=== PATIENT | female | born 1975 | race Caucasian/White ===

== ENCOUNTER 2019-07-30 12:06 | Emergency (ER) | payer OTHER ==
[~2019-07-30] VITALS: Ht 167.6 cm; Wt 56.7 kg
[2019-07-30] MEDS ORDERED: PROGRAF 1 MG1 MG PO (12:28)
[2019-07-30] MEDS ORDERED: PROBIOTIC1 EAC7 PO (12:28)
[2019-07-30] MEDS ORDERED: VITAMIN E100 UNI1 PO (12:28)
[2019-07-30] MEDS ORDERED: MAGNESIUM250 M1 PO (12:28)
[2019-07-30 12:44] LABS: ABSOLUTE NEUTROPHILS 4.7 thou/uL (1.4-8.2); BASOPHILS 0.4 % (0.0-2.0); EOSINOPHILS 1.2 % (0.0-3.0); HEMATOCRIT 38.8 % (37.0-47.0); HEMOGLOBIN 12.9 gm/dL (12.0-15.0); LYMPHOCYTES 31.2 % (24.0-44.0); MCH 29.4 pg (26.0-34.0); MCHC 33.3 g/dL (28.0-37.0); MCV 88.2 fL (80.0-100.0); MONOCYTES 6.6 % (1.0-8.0); PLATELET COUNT 228 thou/uL (150-400); POLYS 60.6 % (36.0-66.0); RDW 12.6 % (10.5-14.5); WBC 7.7 thou/uL (4.0-11.0)
[2019-07-30 12:50] LABS: ANION GAP 8 mmol/L (7-16); BUN 18 mg/dL (7-18); CALCIUM 9.6 mg/dL (8.5-10.1); CHLORIDE 97 mmol/L (98-107); CO2 29 mmol/L (21-32); GLUCOSE 97 mg/dL (74-106); POTASSIUM 4.7 mmol/L (3.5-5.1); SODIUM 134 mmol/L (136-145)
[2019-07-30 12:56] LABS: PROTIME 10.2 Seconds (9.3-11.4)
[2019-07-30 13:01] LABS: ALBUMIN 4.3 g/dL (3.4-5.0); MAGNESIUM 1.4 mg/dL (1.8-2.4); SGOT 13 U/L (15-37); SGPT 16 U/L (30-65); TOTAL BILIRUBIN 0.4 mg/dL (<0.1-1.0); TOTAL PROTEIN 7.8 g/dL (6.4-8.2); TROPONIN-I <0.06 ng/mL (<0.06)
[2019-07-30 13:16] LABS: URINE BILIRUBIN NEGATIVE (Negative); URINE BLOOD NEGATIVE (Negative); URINE CLARITY CLEAR; URINE COLOR YELLOW; URINE GLUCOSE-RANDOM* NEGATIVE (Negative); URINE KETONES NEGATIVE (Negative); URINE LEUKOCYTES-REFLEX NEGATIVE (Negative); URINE NITRITE-REFLEX NEGATIVE (Negative); URINE PROTEIN (DIPSTICK) NEGATIVE (Negative); URINE SPECIFIC GRAVITY 1.015 (1.005-1.035); URINE UROBILINOGEN 0.2 E.U./dl (0.2-1.0)
[2019-07-30 14:46] VITALS: BP 121/75
[2019-07-30] MEDS ORDERED: VENTOLIN HFA 1818 GM INH (14:49)
[2019-07-30] MEDS ORDERED: PREDNISONE 20 M20 MG PO (14:49)
[2019-07-30] MEDS ORDERED: AMBIEN 5 MG TABL5 M1 PO (14:52)
[2019-08-05] MEDS ORDERED: MAG-OXIDE400 MG PO (13:48)
--- NOTE | 2019-08-05 15:34 | EKG ---
[facility] [place] [address] ELECTROCARDIOGRAM REPORT Name: BETTY MARRERO Room #: DEP [facility]#: [id number] Admission: 07/30/19 Attend Phys: Discharge: 07/30/19 Date of : 77 Report #: [id number] THIS REPORT FOR: cc: Gaurav Devries III, III, Herbert E. 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
== END 2019-07-30 14:46 | disposition home or self-care (01) ==
LOC: ER 12:06
PROVIDERS: Emergency Medicine
DX: J20.9 Acute bronchitis, unspecified (principal); J98.01 Acute bronchospasm; Z94.4 Liver transplant status; Z87.891 Personal history of nicotine dependence

== ENCOUNTER 2019-08-14 05:51 | Emergency (ER) | payer OTHER ==
[~2019-08-14] VITALS: Ht 167.6 cm; Wt 56.7 kg
[~2019-08-14 05:51] MED LIST: AMBIEN 5 MG TABL5 M1 PO; MAG-OXIDE400 MG PO; MAGNESIUM250 M1 PO; PREDNISONE 20 M20 MG PO; PROBIOTIC1 EAC7 PO; PROGRAF 1 MG1 MG PO; VENTOLIN HFA 1818 GM INH; VITAMIN E100 UNI1 PO
[2019-08-14] MEDS ORDERED: ULTRAM 50MG TAB50 MG PO (06:32)
[2019-08-14] MEDS ORDERED: TYLENOL 8 HOUR650 MG PO (06:32)
[2019-08-14] MEDS ORDERED: NORFLEX100 MG PO (06:32)
[2019-08-14 07:23] VITALS: BP 122/78
== END 2019-08-14 07:25 | disposition home or self-care (01) ==
LOC: ER 05:51
DX: S16.1XXA Strain of muscle, fascia and tendon at neck level, initial encounter (principal); Z79.899 Other long term (current) drug therapy; Z87.891 Personal history of nicotine dependence; Z94.4 Liver transplant status; X50.1XXA Overexertion from prolonged static or awkward postures, initial encounter; Y93.84 Activity, sleeping; Y92.89 Other specified places as the place of occurrence of the external cause; Y99.8 Other external cause status